=== PATIENT | male | born 1965 | race Hispanic/Latino ===

== ENCOUNTER 2019-12-24 13:05 | Outpatient (CLI) | payer BC ==
--- NOTE | 2019-12-24 14:32 | MRI ---
MRI Lumbar Spine Noncontrast: HISTORY: Low back pain with pain rating down bilateral legs greater on the right. Numbness and tingling in rig ht leg for many years. COMPARISON: None FINDINGS: The visualized retroperitoneal structures demonstrate a normal appearance. Conus medullaris is normal in morphology and terminates at the T12-L1 level. Focus of increased T2-weighted signal intensity seen in the L4 vertebral body with punctate hypointen se areas seen. This demonstrates decreased attenuation on T1-weighted images but probably related to an atypical small hemangioma. Multilevel degenerative changes are seen in the lumbar spine. T12-L1: Mild disc osteophyte complex is present which results in flattening the anterior aspect of th e thecal sac. Neural foramina are patent. L1-2: Broad-based disc osteophyte complex and facet hypertrophic changes are present. As result in mo derate narrowing of the central spinal canal. Neural foramina are patent. L2-3: Disc osteophyte complex and facet hypertrophic change and mild ligamentous thickening is presen t. Mild generalized narrowing of the central spinal canal is present. Neural foramina are patent. L3-4: Slight retrolisthesis of L3 on L4 is present. Mild loss of intervertebral disc height is presen t. Broad-based disc osteophyte complex is present with facet hypertrophic changes and ligamentous thickening. Fluid signal intensity is seen in the facet joints. Moderate central canal narrowing is p resent. Minimal bilateral neural foraminal narrowing is noted. L4-5: A prominent central disc extrusion is present with disc material extending superiorly to lie po sterior to the lower portion of the L4 vertebral body. Facet hypertrophic changes and prominent ligamentous thickening are present. Severe central canal narrowing is present. There is mild bilatera l neural foraminal narrowing greater on the left. L5-S1: Mild disc osteophyte complex present. Facet hypertrophic changes are noted. Fluid signal inten sity seen in the facet joints. Central spinal canal is patent. Right neural foramen is patent, there is mild left-sided neural foraminal narrowing. IMPRESSION: Multilevel degenerative changes with findings greatest at the L3-4 and L4-5 levels where there is mod erate central canal narrowing at L3-4 level and severe central canal narrowing at the L4-5 level. A central disc extrusion is seen at the L4-5 level. Trace retrolisthesis of L3 on L4 is present.
== END 2019-12-24 13:06 | disposition home or self-care (01) ==
LOC: BICMRI 13:05
PROVIDERS: ATTEND Physical Medicine & Rehabilitation
DX: M48.07 Spinal stenosis, lumbosacral region (principal); M47.816 Spondylosis without myelopathy or radiculopathy, lumbar region; M48.061 Spinal stenosis, lumbar region without neurogenic claudication; M51.26 Other intervertebral disc displacement, lumbar region; M43.16 Spondylolisthesis, lumbar region
CPT/HCPCS: 72148